=== PATIENT | female | born 1960 | race Caucasian/White ===

== ENCOUNTER 2017-02-28 17:12 | Emergency (ER) | payer SELFPAY ==
[~2017-02-28] VITALS: Ht 152.4 cm; Wt 109.0 kg
[2017-02-28] MEDS ORDERED: ACETAMINOPHEN 500MG TABLET PO ONE (18:00)
[2017-02-28 19:38] VITALS: BP 128/58
== END 2017-02-28 20:20 | disposition home or self-care (01) ==
LOC: ER 17:19
DX: S80.01XA Contusion of right knee, initial encounter (principal); I10 Essential (primary) hypertension; E11.9 Type 2 diabetes mellitus without complications; W10.9XXA Fall (on) (from) unspecified stairs and steps, initial encounter; Y93.89 Activity, other specified; Y99.9 Unspecified external cause status; Y92.89 Other specified places as the place of occurrence of the external cause
CPT/HCPCS: 71101; 73130; 73562; 99284; Z7610

== ENCOUNTER 2017-03-13 18:10 | Emergency (ER) | payer SELFPAY ==
[~2017-03-13] VITALS: Ht 152.4 cm; Wt 82.0 kg
[2017-03-13] MEDS ORDERED: SODIUM CHLORIDE 0.9% 1,000 ML IV ONE (20:00)
[2017-03-13] MEDS ORDERED: VANCOMYCIN 1 G PREMIX 200 ML IV SCH (20:00)
[2017-03-13] MEDS ORDERED: CEFAZOLIN 1000MG PREMIX 50 ML IV ONE (20:00)
[2017-03-13] MEDS ORDERED: KETOROLAC 30MG/ML VIAL IV ONE (20:00)
[2017-03-13 20:14] LABS: BASOPHILS % 1.1 % (0.0-2.0); EOSINOPHILS % 2.9 % (0.0-5.0); HEMATOCRIT. 33.1 % (36.0-48.0); HEMOGLOBIN. 11.5 g/dL (12.0-16.0); LYMPHOCYTES % 36.5 % (20.0-50.0); MEAN CORPUSCULAR HEMOGLOBIN 31.3 pg (28.0-32.0); MEAN CORPUSCULAR HGB CONC 34.7 g/dL (31.0-37.0); MEAN CORPUSCULAR VOLUME 90.2 fL (81.0-99.0); MEAN PLATELET VOLUME 8.9 fl (7.4-10.4); MONOCYTES % 7.2 % (2.0-8.0); NEUTROPHILS % 52.3 % (40.0-76.0); PLATELET 236 x1000/uL (130-400); RED BLOOD CELL COUNT 3.67 mill/uL (4.2-5.4); RED CELL DISTRIBUTION WIDTH 13.3 % (11.6-14.6); WHITE BLOOD COUNT 6.8 x1000/uL (4.5-11.0)
[2017-03-13 20:23] LABS: ANION GAP 12; CALCIUM 8.8 mg/dL (8.5-10.1); CARBON DIOXIDE 28 mEq/L (21-32); CHLORIDE 103 mEq/L (98-107); INDEX HEMOLYSI 1 (1-3); INDEX ICTERIC 1 (1-4); INDEX LIPEMIC 1 (1-3); UREA NITROGEN BLOOD 12 mg/dL (7-21); eGFR > 60 mL/min (>60)
[2017-03-14 00:14] VITALS: BP 138/62
== END 2017-03-14 00:16 | disposition home or self-care (01) ==
LOC: ER 18:27
DX: M25.061 Hemarthrosis, right knee (principal); E11.9 Type 2 diabetes mellitus without complications; I10 Essential (primary) hypertension
CPT/HCPCS: 36415; 80048; 85025; 85651; 96365; 96366; 96368; 96375; 99285; J0690; J1885; J3370; Z7610; J7030